=== PATIENT | female | born 1965 | race Caucasian/White ===

== ENCOUNTER → 2016-07-24 | Outpatient (CLI) | payer OTHER | END | disposition home or self-care (01) | LOC: GMAB 11:39 | PROVIDERS: ATTEND Family Medicine | DX: R94.5 Abnormal results of liver function studies (principal) ==

== ENCOUNTER → 2016-07-29 | Outpatient (CLI) | payer OTHER, SELFPAY ==
[~2016-07-29] MED LIST: ALBUTEROL SULFATE 2.5 MG/3 ML VIAL NEB ONE
--- NOTE | 2016-07-30 16:27 | US ---
EXAM DESCRIPTION: Abdomen,Complete CLINICAL HISTORY: 51 years Female, ABNORMAL RESULTS OF LIVER FUNCTION STUDIES COMPARISON: None. TECHNIQUE: Grayscale imaging of the abdomen was performed. Static images were saved to the patient's medical record. FINDINGS: Patient is status post cholecystectomy. The common bile duct is unremarkable measuring 5 mm in diameter. No intrahepatic biliary duct dilatation. There is hepatomegaly and likely hepatic steatosis as the echogenicity of the liver is increased. The spleen is normal in size. The abdominal aorta and IVC are unremarkable. The pancreas is not visualized due to overlying bowel gas. The bilateral kidneys demonstrate no evidence of obstruction or mass. The right kidney measures 10.6 cm in diameter and the left measures 9.2. IMPRESSION: Hepatomegaly and hepatic steatosis noted. Patient is status post cholecystectomy. Nonvisualization of the pancreas due to overlying bowel gas. Electronically signed by: Ted Dhaliwal MD 07/30/2016 4:26 PM [employer]
== END | disposition home or self-care (01) ==
LOC: RESP 14:16
PROVIDERS: ATTEND Nurse Practitioner Family
DX: J42 Unspecified chronic bronchitis (principal)

== ENCOUNTER → 2016-07-29 | Outpatient (CLI) | payer OTHER | LOC: RESP 14:16 | PROVIDERS: ATTEND Nurse Practitioner Family | DX: J42 Unspecified chronic bronchitis (principal) | CPT/HCPCS: 94060; J7611 ==

== ENCOUNTER → 2016-08-07 | Outpatient (CLI) | payer OTHER | END | disposition home or self-care (01) | LOC: LAB.O 08:22 | PROVIDERS: ATTEND Internal Medicine Gastroenterology | DX: R74.8 Abnormal levels of other serum enzymes (principal) ==

== ENCOUNTER → 2016-11-13 | Outpatient (CLI) | payer OTHER | END | disposition home or self-care (01) | LOC: LAB 13:01 | PROVIDERS: ATTEND Nurse Practitioner Family | DX: E53.8 Deficiency of other specified B group vitamins (principal); E55.9 Vitamin D deficiency, unspecified; E03.9 Hypothyroidism, unspecified ==

== ENCOUNTER → 2017-10-07 | Outpatient (CLI) | payer OTHER | LOC: GMAB 11:05 | PROVIDERS: ATTEND Family Medicine | DX: Z00.00 Encounter for general adult medical examination without abnormal findings (principal) ==

== ENCOUNTER → 2018-09-05 | Outpatient (CLI) | payer OTHER ==
--- NOTE | 2018-09-06 16:01 | RAD ---
EXAM DESCRIPTION: Tibia/Fibula,Right CLINICAL HISTORY: 53 years Female, OTHER SPECIFIED INJURIES OF RIGHT LOWER LEG COMPARISON: None. FINDINGS: The visualized bones appear well mineralized. No acute fracture or dislocation. The medial and lateral compartment joint spaces are well-maintained. The ankle mortise is grossly intact. The overlying soft tissues appear grossly unremarkable. IMPRESSION: 1. No acute fracture or dislocation. Electronically signed by: Cesar Reno MD 09/06/2018 3:58 PM CDT
== END ==
LOC: RAD 16:54
PROVIDERS: ATTEND Nurse Practitioner Family
DX: S89.81XD Other specified injuries of right lower leg, subsequent encounter (principal)